=== PATIENT | female | born 1955 | race Caucasian/White ===

== ENCOUNTER → 2022-06-21 | Outpatient (REF) | payer MEDICARE, OTHER ==
[2022-06-21 18:27] LABS: MAGNESIUM LEVEL 1.9 MG/DL (1.8-2.4)
[2022-06-21 18:28] LABS: BILIRUBIN,DIRECT 0.3 MG/DL (<0.4); CPK CREATINE PHOSPHOKINASE 52 U/L (34-145); TOTAL 25(OH) VITAMIN D 10.4 NG/ML (20.0-100.0)
[2022-06-21 18:29] LABS: ALBUMIN 3.4 G/DL (3.2-5.2); ALKALINE PHOSPHATASE 124 U/L (46-116); ALT/SGPT 20 U/L (7.0-40); AST/SGOT 23 U/L (<34); BILIRUBIN,TOTAL 0.7 MG/DL (0.3-1.2); BLOOD UREA NITROGEN 7 MG/DL (9-23); CALCIUM LEVEL 8.8 MG/DL (8.3-10.6); CARBON DIOXIDE LEVEL 25 MMOL/L (20-31); CHLORIDE LEVEL 100 MMOL/L (98-107); CREATININE FOR GFR 0.55 MG/DL (0.55-1.30); GLOMERULAR FILTRATION RATE > 60.0 (>45); GLUCOSE, FASTING 107 MG/DL (74-106); HEPATITIS B SURFACE ANTIBODY NEGATIVE (POSITIVE); PHOSPHORUS LEVEL 3.3 MG/DL (2.4-5.1); SODIUM LEVEL 139 MMOL/L (136-145)
[2022-06-21 18:30] LABS: VITAMIN B12 LEVEL 290 PG/ML (211-911)
[2022-06-21 18:41] LABS: HEPATITIS B SURFACE ANTIGEN NEGATIVE (NEGATIVE)
[2022-06-21 19:02] LABS: HEPATITIS C VIRUS ABY INDEX 0.1 INDEX (<0.8)
[2022-06-21 21:47] LABS: COMPLEMENT C3 153.3 MG/DL (90.0-170.0); COMPLEMENT C4 26.2 MG/DL (12-36)
== END ==
LOC: M SFHCRHEU 15:44
PROVIDERS: ATTEND Internal Medicine
DX: M05.9 Rheumatoid arthritis with rheumatoid factor, unspecified (principal); M79.10 Myalgia, unspecified site; R68.2 Dry mouth, unspecified; Z11.59 Encounter for screening for other viral diseases

== ENCOUNTER → 2023-06-21 | Outpatient (REF) | payer MEDICARE, BC, OTHER | LOC: M SFHCRHEU 13:43 | PROVIDERS: ATTEND Internal Medicine | DX: E55.9 Vitamin D deficiency, unspecified (principal) ==

== ENCOUNTER → 2023-07-03 | Outpatient (CLI) | payer MEDICARE, BC, OTHER | LOC: M RAD 13:46 | PROVIDERS: ATTEND Internal Medicine | DX: R60.0 Localized edema (principal); M71.21 Synovial cyst of popliteal space [Baker], right knee ==

== ENCOUNTER → 2023-08-02 | Outpatient (CLI) | payer MEDICARE, BC, OTHER | LOC: M CARPUL 13:24 | PROVIDERS: ATTEND Internal Medicine | DX: R60.0 Localized edema (principal) ==